=== PATIENT | male | born 1985 | race African-American/Black ===

== ENCOUNTER 2018-01-18 00:34 | Emergency (ER) | payer OTHER | END 2018-01-18 02:58 | disposition left against medical advice (07) | LOC: FTE 00:34 | DX: L98.0 Pyogenic granuloma (principal) | CPT/HCPCS: 99283; Z7502 ==

== ENCOUNTER 2018-05-07 16:24 | Emergency (ER) | payer MEDICAID, OTHER ==
[2018-05-07] MEDS: HYDROCODONE/APAP (5/325) TAB PO (17:29)
== END 2018-05-07 20:12 | disposition home or self-care (01) ==
LOC: E/R 16:24
DX: S40.812A Abrasion of left upper arm, initial encounter (principal); S16.1XXA Strain of muscle, fascia and tendon at neck level, initial encounter; R07.9 Chest pain, unspecified; V02.19XA Pedestrian with other conveyance injured in collision with two- or three-wheeled motor vehicle in traffic accident, initial encounter
CPT/HCPCS: 71045; 72125; 73000; 73030; 99284-25